=== PATIENT | male | born 1935 | race Caucasian/White ===

== ENCOUNTER → 2016-09-13 | Outpatient (CLI) | payer OTHER | LOC: CIMAGING 16:22 | PROVIDERS: ATTEND Internal Medicine | DX: S79.912A Unspecified injury of left hip, initial encounter (principal); S89.92XA Unspecified injury of left lower leg, initial encounter | CPT/HCPCS: 73502-PO; 73562-PO ==

== ENCOUNTER → 2016-12-06 | Outpatient (CLI) | payer OTHER | LOC: CIMAGING 14:50 | PROVIDERS: ATTEND Internal Medicine | DX: M50.30 Other cervical disc degeneration, unspecified cervical region (principal); M43.13 Spondylolisthesis, cervicothoracic region; Z98.1 Arthrodesis status | CPT/HCPCS: 72050-PO; G0463-PO ==

== ENCOUNTER → 2017-05-16 | Outpatient (CLI) | payer OTHER | LOC: CIMAGING 11:00 | PROVIDERS: ATTEND Internal Medicine | DX: Z12.11 Encounter for screening for malignant neoplasm of colon (principal); Z86.010 Personal history of colon polyps; Z98.1 Arthrodesis status; K40.90 Unilateral inguinal hernia, without obstruction or gangrene, not specified as recurrent | CPT/HCPCS: 74263-PO ==

== ENCOUNTER 2017-08-16 11:26 | Emergency (ER) | payer OTHER ==
--- NOTE | 2017-08-16 11:40 | EDPHY ---
H & P Time Seen by Provider: 08/16/17 11:34 HPI/ROS: CHIEF COMPLAINT: Skin tear, foot pain HISTORY OF PRESENT ILLNESS: The patient is an 82-year-old man who missed the bed when he tried to lay down last night to go to sleep. He suffered a skin tear to his left elbow and some bruising to the distal aspect of his left foot. He is able to ambulate. He did not hit his head. He denies head neck or back pain. The bleeding has now stopped. He denies other injuries or concerns. He denies syncope, chest pain or palpitations. He does not take blood thinners. REVIEW OF SYSTEMS: Constitutional: denies: chills, fever, recent illness, recent injury EENTM: denies: blurred vision, double vision, nose congestion Respiratory: denies: cough, shortness of breath Cardiac: denies: chest pain, irregular heart rate, lightheadedness, palpitations Gastrointestinal/Abdominal: denies: abdominal pain, diarrhea, nausea, vomiting, blood streaked stools Genitourinary: denies: dysuria, frequency, hematuria, pain Musculoskeletal: See HPI Skin: See HPI Neurological: denies: headache, numbness, paresthesia, tingling, dizziness, weakness Hematologic/Lymphatic: denies: blood clots, easy bleeding, easy bruising Immunologic/allergic: denies: HIV/AIDS, transplant EXAM: GENERAL: Well-appearing, well-nourished and in no acute distress. HEAD: Atraumatic, normocephalic. EYES: Pupils equal round and reactive to light, extraocular movements intact, sclera anicteric, conjunctiva are normal. ENT: TMs normal, nares patent, oropharynx clear without exudates. Moist mucous membranes. NECK: Normal range of motion, supple without lymphadenopathy or JVD. LUNGS: Breath sounds clear to auscultation bilaterally and equal. No wheezes rales or rhonchi. HEART: Regular rate and rhythm without murmurs, rubs or gallops. ABDOMEN: Soft, nontender, normoactive bowel sounds. No guarding, no rebound. No masses appreciated. BACK: No CVA tenderness, no spinal tenderness, step-offs or deformities EXTREMITIES: Bruising to the distal aspect dorsally of his left foot. Normal range of motion. No tenderness. No swelling. Able to ambulate. No ankle pain. No knee or hip pain. Skin tear to his left elbow. Normal range of motion. Normal pulses and sensation distally. NEUROLOGICAL: Cranial nerves II through XII grossly intact. Normal speech, normal gait. 5/5 strength, normal movement in all extremities, normal sensation PSYCH: Normal mood, normal affect. SKIN: 2 moderate-size skin tears to left elbow. Some surrounding bruising. Source: Patient, Family Exam Limitations: No limitations - Medical/Surgical History Hx Asthma: No Hx Chronic Respiratory Disease: No Hx Diabetes: No Hx Cardiac Disease: No Hx Renal Disease: No Hx Cirrhosis: No Hx Alcoholism: No Hx HIV/AIDS: No Hx Splenectomy or Spleen Trauma: No Other PMH: back surg/stroke - Family History Significant Family History: No pertinent family hx - Social History Smoking Status: Former smoker Alcohol Use: Sober Drug Use: None Constitutional: Initial Vital Signs Temperature (C) 36.8 C 08/16/17 11:35 Heart Rate 75 08/16/17 11:35 Respiratory Rate 18 08/16/17 11:35 Blood Pressure 125/75 H 08/16/17 11:35 O2 Sat (%) 94 08/16/17 11:35 O2 Delivery Mode Room Air Allergies/Adverse Reactions: simvastatin [From Zocor] Allergy (Verified 08/16/17 11:39) Home Medications: Medication Instructions Recorded Nexium 01/16/14 Norvasc 01/16/14 VIT A,C,& E/DIETARY SUPP NO.12 01/16/14 Zocor 10 mg (RX) 01/16/14 Aspirin 81mg (*) 08/16/17 Medical Decision Making - Diagnostics Imaging Results: Imaging Impressions Foot X-Ray 08/16/17 11:38 Impression: 1. No acute osseous abnormality seen left foot. 2. Vascular calcifications are noted. Consider underlying diabetes. ED Course/Re-evaluation: The patient declines imaging of his left elbow. His skin tear will be cleaned and dressed with antibiotic ointment sterile dressings. We will x-ray his foot. 12:20 p.m. the patient's skin tear was debrided. Dressed with antibiotic ointment and sterile dressings. We discussed the x-ray results which are reassuring. I recommended elevation but weight-bearing as tolerated. Differential Diagnosis: Partial list of the Differential diagnosis considered include but were not limited to; contusion, skin tear and although unlikely based on the history and physical exam, I also considered fracture, dislocation, head injury, neck injury, syncope. I discussed these differential diagnoses and the plan with the patient as well as the usual and expected course. The patient understands that the diagnosis is provisional and that in medicine we are not always correct and that further workup is often warranted. Usual and customary warnings were given. All of the patient's questions were answered. The patient was instructed to return to the emergency department should the symptoms at all worsen or return, otherwise to followup with the physician as we discussed. Departure - Departure Disposition: Home, Routine, Self-Care Clinical Impression: Contusion of left foot, initial encounter Skin tear of left elbow without complication Qualifiers: Encounter type: initial encounter Qualified Code(s): S51.012A - Laceration without foreign body of left elbow, initial encounter Condition: Fair Instructions: Foot Contusion (ED), Skin Tear (ED) Additional Instructions: LEAVE THE DRESSING IN PLACE FOR A MINIMUM OF 48 HOURS. DURING THIS TIME IT SHOULD BE KEPT CLEAN AND DRY. YOU MAY LEAVE THIS DRESSING IN PLACE FOR UP TO 4- 5 DAYS. ONCE IT HAS BEEN REMOVED, BEGIN TO CLEAN THE WOUND DAILY WITH MILD SOAP AND WARM WATER. KEEP THE WOUND COVERED IF IT MAY BE EXPOSED TO DIRT OR COULD BECOME SOILED. WATCH FOR ANY SIGNS OF INFECTION, INCLUDING BUT NOT LIMITED TO FEVER, INCREASING REDNESS OR SWELLING, PUS COMING FROM THE WOUND OR RED STREAKS GOING UP YOUR ARM. FOLLOW UP WITH YOUR PRIMARY CARE PHYSICIAN IF NOT IMPROVING. RETURN TO THE EMERGENCY DEPARTMENT FOR ANY SIGNIFICANT WORSENING. Referrals: Juanito Pedersen MD [Primary Care Provider] - 2-3 days, if not improved
[2017-08-16 11:48] VITALS: PULSE 75; RESP 18; TEMP 98.2; O2SAT 94
[2017-08-16 12:51] VITALS: BP 120/72
== END 2017-08-16 12:45 | disposition home or self-care (01) ==
LOC: CED 11:26
DX: S51.012A Laceration without foreign body of left elbow, initial encounter (principal); S90.32XA Contusion of left foot, initial encounter; Z79.82 Long term (current) use of aspirin; Z87.891 Personal history of nicotine dependence; W06.XXXA Fall from bed, initial encounter
CPT/HCPCS: 73630-PO

== ENCOUNTER → 2017-10-12 | Outpatient (CLI) | payer OTHER | LOC: BHFA 14:00 | PROVIDERS: ATTEND Internal Medicine Cardiovascular Disease | DX: Z01.810 Encounter for preprocedural cardiovascular examination (principal); R06.9 Unspecified abnormalities of breathing; Z86.73 Personal history of transient ischemic attack (TIA), and cerebral infarction without residual deficits; M48.00 Spinal stenosis, site unspecified | CPT/HCPCS: 78452; 93017; A9500; J2785 ==

== ENCOUNTER → 2017-10-17 | Outpatient (CLI) | payer OTHER | LOC: BHFA 16:15 | PROVIDERS: ATTEND Internal Medicine | DX: Z01.810 Encounter for preprocedural cardiovascular examination (principal); R94.30 Abnormal result of cardiovascular function study, unspecified; I10 Essential (primary) hypertension ==

== ENCOUNTER 2017-11-22 07:30 | Inpatient (IN) | payer OTHER ==
--- NOTE | 2017-11-22 06:52 | PDHPUP ---
History & Physical Update H&P update statement: This history and physical update is based on an assessment of the patient which was completed after admission or registration (within 24 hours), but prior to the surgery/procedure. H&P update: H&P reviewed & patient examined, no change in patient's condition since H&P completed
[2017-11-22] MEDS ORDERED: GABAPENTIN 300 MG CAP PO ONE (08:41)
[2017-11-22] MEDS ORDERED: ceFAZolin 2 GM/SWFI 2 GM/20 ML SYR IVP ONE (08:41)
[2017-11-22] MEDS ORDERED: ACETAMINOPHEN 500 MG TAB PO ONE (08:41)
[2017-11-22] MEDS ORDERED: LR 1,000 ML IV ONE (08:42)
[2017-11-22] MEDS ORDERED: LIDOCAINE 1% 2 ML INJ ID PRN (08:42)
[2017-11-22] MEDS ORDERED: CHLORHEXIDINE GLUC HIBICLENS 118 ML BTL TP ONE (09:40)
[2017-11-22] MEDS ORDERED: BUPIVACAINE 0.25% 30 ML SDV ONE (09:41)
[2017-11-22] MEDS ORDERED: BACITRACIN 50,000 UNITS/10 ML SYR IRR ONE ×2 (09:41→13:15)
[2017-11-22] MEDS ORDERED: EPINEPHrine 1 MG/ML INJ ONE (09:41)
[2017-11-22] MEDS ORDERED: THROMBIN (BOVINE) 5,000 UNIT VIAL TP ONE (09:41)
[2017-11-22] MEDS ORDERED: ONDANSETRON DISINTEGRATING 4 MG TAB PO PRN (09:59)
[2017-11-22] MEDS ORDERED: morphINE PCA 30 MG/30 ML PCA IV PRN (09:59)
[2017-11-22] MEDS ORDERED: NALOXONE HCL 0.4 MG/ML INJ IVP PRN ×2 (09:59→14:55)
[2017-11-22] MEDS ORDERED: diphenhydrAMINE 25 MG CAP PO PRN (09:59)
[2017-11-22] MEDS ORDERED: MAGNESIUM HYDROXIDE 30 ML UDCUP PO PRN (09:59)
[2017-11-22] MEDS ORDERED: LACTULOSE 20 GM/30 ML UDCUP PO PRN (09:59)
[2017-11-22] MEDS ORDERED: BISACODYL 10 MG SUPP PR PRN (09:59)
[2017-11-22] MEDS ORDERED: NS 500 ML IV PRN (09:59)
[2017-11-22] MEDS ORDERED: ONDANSETRON 4 MG/2 ML VIAL IVP PRN ×2 (09:59→14:55)
[2017-11-22] MEDS ORDERED: NS W/ 20 KCl/L 1,000 ML IV SCH (10:00)
[2017-11-22] MEDS ORDERED: DEXMEDETOMIDINE HCL 400 MCG in NS 100 ML IV SCH (10:00)
--- NOTE | 2017-11-22 10:04 | PDANEPAE ---
ANE History of Present Illness Back pain ANE Past Medical History - Cardiovascular History Hx Hypertension: Yes Hx Arrhythmias: No Hx Chest Pain: No Hx Coronary Artery / Peripheral Vascular Disease: No Hx CHF / Valvular Disease: No Hx Palpitations: No Cardiovascular History Comment: on Chol Rx - Pulmonary History Hx COPD: No Hx Asthma/Reactive Airway Disease: No Hx Recent Upper Respiratory Infection: No Hx Oxygen in Use at Home: No Hx Sleep Apnea: No Sleep Apnea Screening Result - Last Documented: Negative - Neurologic History Hx Cerebrovascular Accident: Yes Hx Seizures: No Hx Dementia: No Neurologic History Comment: 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 Short term memory loss. - Endocrine History Hx Diabetes: No - Renal History Hx Renal Disorders: No - Liver History Hx Hepatic Disorders: No - Neurological & Psychiatric Hx Hx Neurological and Psychiatric Disorders: Yes Neurological / Psychiatric History Comment: low back pain radiating down L butt/ hip. on Sertraline-depression. - Cancer History Hx Cancer: No - Congenital Disorder History Hx Congenital Disorders: No - GI History Hx Gastrointestinal Disorders: Yes Gastrointestinal History Comment: acid reflux,heartburn - Other Health History Other Health History: OA L knee pain. bruises easily - Chronic Pain History Chronic Pain: Yes (low back,L knee) - Surgical History Prior Surgeries: cervical fusion 2007. lumbar fusion. elbow sx. knee sx ANE Review of Systems Review of Systems: - Exercise capacity METS (RN): 2 METS ANE Patient History - Allergies Allergies/Adverse Reactions: No Known Allergies Allergy (Verified 10/16/17 15:18) - Home Medications Home Medications: Aspirin [Aspirin 81mg (*)] 81 mg PO DAILY 10/11/17 [Last Taken 11/14/17] Cyanocobalamin [Vitamin B12 (*)] 1,000 mcg PO DAILY 10/11/17 [Last Taken ] Docusate Sodium [Colace 100 MG (*)] 100 mg PO DAILY PRN 10/11/17 [Last Taken Unknown] Meloxicam 15 mg PO DAILY 10/11/17 [Last Taken 11/21/17 08:00] Multivitamins [Multivitamin (*)] 1 each PO DAILY 10/11/17 [Last Taken 11/14/17] Omeprazole 40 mg PO DAILY 10/11/17 [Last Taken 11/22/17 07:30] Polyethylene Glycol 3350 [Miralax 17 gm (*)] 17 gm PO HS 10/11/17 [Last Taken ] Sertraline HCl [Zoloft 50mg (*)] 50 mg PO DAILY 10/11/17 [Last Taken 11/22/17 07 :30] Simvastatin [Zocor] 20 mg PO HS 10/11/17 [Last Taken 11/21/17 20:00] Thiamine HCl [Vitamin B-1] 100 mg PO DAILY 10/11/17 [Last Taken 11/14/17] traMADol [Ultram 50 mg (*)] 50 mg PO BID 10/11/17 [Last Taken 11/22/17 07:30] traZODone [traZODONE 50MG (*)] 25 mg PO HS 10/11/17 [Last Taken 11/21/17 20:00] Metoprolol Succinate Xr [Toprol Xl 25 mg (*)] 25 mg PO DAILY 11/13/17 [Last Taken 11/22/17 07:30] - NPO status NPO Since - Liquids (Date): 11/22/17 NPO Since - Liquids (Time): 04:30 NPO Since - Solids (Date): 11/21/17 NPO Since - Solids (Time): 20:00 - Anes Hx Anes Hx: no prior problems - Smoking Hx Smoking Status: Former smoker ANE Labs/Vital Signs - Vital Signs Blood Pressure: 122/63 Heart Rate: 53 Respiratory Rate: 16 O2 Sat (%): 94 Height: 172.72 cm Weight: 54.431 kg ANE Physical Exam - Airway Neck exam: FROM Mallampati Score: Class 1 Mouth exam: normal dental/mouth exam - Pulmonary Pulmonary: no respiratory distress - Cardiovascular Cardiovascular: regular rate and rhythym - ASA Status ASA Status: IV ANE Anesthesia Plan Anesthesia Plan: general endotracheal anesthesia
[2017-11-22] MEDS ORDERED: PROPOFOL 200 MG/20 ML VIAL ONE ×2 (10:08→13:47)
[2017-11-22] MEDS ORDERED: PROPOFOL/EMULSION 500 MG/50 ML BOTTLE IV ONE (10:08)
[2017-11-22] MEDS ORDERED: fentaNYL 100 MCG/2 ML INJ ONE ×4 (10:08→15:12)
[2017-11-22] MEDS ORDERED: LIDOCAINE 2% 5 ML SDV ONE (10:52)
[2017-11-22] MEDS ORDERED: GLYCOPYRROLATE 0.2 MG/1 ML VIAL ONE ×2 (10:52→10:55)
[2017-11-22] MEDS ORDERED: THROMBIN (BOVINE) 20,000 UNIT VIAL TP ONE (10:52)
[2017-11-22] MEDS ORDERED: ROCURONIUM 50 MG/5 ML VIAL ONE (10:52)
--- NOTE | 2017-11-22 14:53 | SOAPPROG ---
SOAP Progress Note Assessment/Plan: Post Op Visit: S: Awake and alert. NAD. O: AFVSS/PERRLA/EOMI no droop CN 2-12 grossly intact +lt touch 5/5 BUE/BLE = CDI A/P: 82 yo male that is s/p L3/4 TLIF with L2/3 PSF and tie in to prior lumbar fusion -orders in place -call with any questions or concerns -take medications as directed -pt understands and agrees -pt seen by Dr Almazan as well 11/22/17 14:50 Objective: Vital Signs Temp Pulse Resp BP Pulse Ox 36.7 C 53 L 16 122/63 H 94 11/22/17 09:27 11/22/17 11:22 11/22/17 11:22 11/22/17 11:22 11/22/17 11:22 ICD10 Worksheet Patient Problems: Problems Problem Status Onset Lumbar radicular pain Acute Lumbar stenosis Acute - ICD10 Problem Qualifiers (1) Lumbar stenosis (2) Lumbar radicular pain
[2017-11-22] MEDS ORDERED: HYDROmorphONE/DILAUDID 2 MG/ML INJ IVP PRN (14:55)
--- NOTE | 2017-11-22 14:56 | POSTANESTH ---
Post Anesthetic Evaluation Cardiovascular Status: Similar to Pre-Op Cond Respiratory Status: Similar to Pre-op Cond. Level of Consciousness/Mental Status: Alert and Oriented, Mildly Sleepy, Arousable Pain Control: Adequate, Prn Tx Ordered Nausea/Vomiting Control: Adequate, Prn Tx Ordered Complications Possibly Related to Anesthesia: None Noted
[2017-11-22] MEDS: fentaNYL 100 MCG/2 ML INJ IVP PRN ×2 (15:14→15:44)
[2017-11-22] MEDS: ACETAMINOPHEN 500 MG TAB PO SCH ×2 (16:49→21:42)
[2017-11-22] MEDS: GABAPENTIN 300 MG CAP PO SCH ×2 (16:49→21:17)
--- NOTE | 2017-11-22 17:08 | PDMN ---
Medical Necessity Medical necessity: IP surgery per [facility] cpt 88987, TLIF
--- NOTE | 2017-11-22 17:34 | GOP ---
[f rep st] OPERATIVE REPORT DATE OF OPERATION: 11/22/2017 SURGEON: Erika Almazan MD NEUROSURGEON: Erika Almazan MD. SMALL ORDER CUTTER: Ej Vasquez PA-C. PREOPERATIVE DIAGNOSIS: Adjacent segment disease, severe; spinal stenosis, L3-4; prior lumbar fusion L4-5, L5-S1; thoracolumbar kyphosis; lumbar spondylosis; lumbar degenerative disk disease, axial low back pain. POSTOPERATIVE DIAGNOSIS: Adjacent segment disease, severe; spinal stenosis, L3-4; prior lumbar fusio n L4-5, L5-S1; thoracolumbar kyphosis; lumbar spondylosis; lumbar degenerative disk disease, axial lo w back pain. PROCEDURE PERFORMED: Removal of posterior segmental instrumentation at L4 in between L4 and L5; post erior lateral arthrodesis only L2-3; posterolateral and intervertebral arthrodesis L3-4, 07627, 50015 ; placement of biomechanical intervertebral device L3-4 same incision bone graft harvest; posterior n ew segmental instrumentation L2-L3 connectors rostral to L5 (99930); spinal stereotaxis same incision bone graft harvest. FINDINGS: ESTIMATED BLOOD LOSS: 250 cc. INDICATIONS: The patient is a very elderly frail gentleman who years ago underwent an L4-5, L5-S1 fu luli with great clinical result, who developed incapacitating axial low back pain and at times radiat ing leg pain that made him relent of life. He said he could no longer go on this way. An MRI was do ne and demonstrated severe spinal stenosis at L3-4 with obliteration both of the neural foramen on ea ch side, but also very severe stenosis due to adjacent segment disease, but there was also some mild stenosis at L2-3. There is a thoracolumbar kyphosis more rostral, but no significant compressive les ion. While biomechanical, I felt this was important. I did not think he would tolerate extending th e fusion up into the thoracic spine. He is quite frail and I explained to him there is actually a ri sk of with this procedure and that it may fail given his advanced age. He did do better than e xpected, even with the last surgery and we thought it was reasonable to give him a chance. He said h michael was accepting of the risks, including the risks of if that were to occur and said that life r ight now is not worth living and he did want us to proceed. He knew there was risk of nerve injury, adjacent segment disease, further kyphosis above. He knew there was a chance that it would fail to a lleviate his pain. He knew there was risk of screw and hardware malposition, malfunction. He knew t here was risk that it would fail to heal and that revision surgery might become necessary. He wanted to proceed despite these risks. DESCRIPTION OF PROCEDURE: Patient was taken to the operating room, placed in supine position. Gener al anesthesia was begun. An arterial line was placed. He was flipped prone on the Hubert table. C are was taken to pad all points of contact. His back was sterilely prepped and draped in usual fashi on. A localizing x-ray was taken. We made a midline incision opening the prior incision, but extend ed it rostrally for about 6 cm. The subcutaneous tissue was dissected using the plasma blade down th rough the fascia and a subperiosteal dissection was made down through the lamina. We exposed the castellanos yuliya of L3, L2 and the inferior lamina of L1, the spinous process of L1, in particular the spinous pro cess of T12 which by way was not exposed in our incision. It was quite prominent above the incision. The spinous process of L1 however was exposed in the incision, we dissected out laterally, exposed the hardware at L4 and the hardware at L5. We removed the cap screws at L4 and then took a high-spee d carbide bit and cut the rods between L4 and L5 and removed the screws from his segmental instrument ation at L4, L5, S1. We removed the screws at L4. We then placed a connector down over the rostral extension of the rods at L5 to ensure the connector fit. We then attached the Stealth reference fram e and using frame of Stealth stereotaxy, placed pedicle screws bilaterally at L3 and L2. There were 4 screws placed, we then took a 70 mm karis, bent the inferior-most portion of the karis that allowed it to fit into the connectors attached to the karis extending from L5. On the left-hand side, we used an in-line connector and then on the right-hand side, a [id number] connector worked better. We then d istracted between L3 and L4 and got significant distraction of the very degenerative disk and this op ened up the interspinous process space, the intralaminar space and the neural foramen indirectly. We also distracted L2-3 and got nice opening there as well. We removed all soft tissue of the bone at L2-3, L3-4. We decorticated all the posterior lateral bony elements to create arthrodesis and then w e removed the L3 lamina in its entirety. We removed the rostral of the L4 lamina. We harvested this for autologous grafting purposes. We opened up the spinal canal and under the operating microscope decompressed bilaterally the traversing L4 nerve roots and perform foraminotomies of the exiting L3 n erve roots on the left-hand side. We performed a complete left facetectomy at L3-4. We then entered the L3-4 disk. We decompressed the exiting L3 nerve root widely. There was a large synovial cyst o n top of the root and this was all totally removed. It was out in the neural foramen itself contribu ting to foraminal stenosis. We then incised the C3-4 disk, removed the disk completely. We roughene d the subchondral bone to create arthrodesis there. We packed the bone disk space with bone autograf t. We sized and chose an expandable 9 mm x 28 mm cage, put in at L3-4 and expanded it under fluorosc opic guidance. It was perfectly in the midline and in the ventral disk space. We had used BMP in th e disk space. We used a grand total of 3.5 mg of BMP on this case. We placed 2 mg of it in the disk space and 0.75 mg posterolaterally bilaterally. We then took the bone autograft and placed it down posterolaterally bilaterally. All the cap screws and connectors had been tightened according to comp any specification, placed a subfascial drain, and then closed the incision in multiple layers using V icryl sutures. The patient was reversed from anesthesia, extubated, and transferred to recovery room in stable condition. There were no complications. COMPLICATIONS: None. /[id number]/MODL
[2017-11-22] MEDS: ceFAZolin 2 GM/SWFI 2 GM/20 ML SYR IVP SCH (18:26)
[2017-11-22] MEDS ORDERED: ceFAZolin 2 GM/DEXTROSE 100 ML IV SCH (19:00)
[2017-11-22] MEDS: HYDROCODONE/APAP 5/325 TAB PO PRN (20:15)
[2017-11-22] MEDS ORDERED: FAMOTIDINE 20 MG TAB PO SCH (21:00)
[2017-11-22] MEDS: ATORVASTATIN CALCIUM 10 MG TAB PO SCH (21:16)
[2017-11-22] MEDS: traZODone 50 MG TAB PO SCH (21:17)
[2017-11-22] MEDS: traMADol 50 MG TAB PO SCH (21:17)
[2017-11-22] MEDS: oxyCODONE IR 5 MG TAB PO PRN (21:18)
[2017-11-22] MEDS: POLYETHYLENE GLYCOL 3350 17 GM PKT PO SCH (21:19)
[2017-11-22] MEDS: METHOCARBAMOL 750 MG TAB PO PRN (21:19)
[2017-11-23] MEDS ORDERED: NS 500 ML IV ONE (02:00)
[2017-11-23] MEDS: ceFAZolin 2 GM/SWFI 2 GM/20 ML SYR IVP SCH (02:09)
[2017-11-23] MEDS: GABAPENTIN 300 MG CAP PO SCH ×2 (05:21→14:53)
[2017-11-23] MEDS: ACETAMINOPHEN 500 MG TAB PO SCH ×2 (05:30→14:53)
[2017-11-23 05:50] LABS: PLATELET COUNT 174 10^3/uL (150-400)
[2017-11-23] MEDS: DOCUSATE SODIUM 100 MG CAP PO PRN (06:48)
--- NOTE | 2017-11-23 08:13 | SOAPPROG ---
SOAP Progress Note Assessment/Plan: Assessment: 82 yo M sp L2-4 fusion with L3/4 TLIF Plan: stable PT/OT scd/jack/lovenox for dvt prophylaxis x-rays today ok to transfer to floor please call with neuro changes 11/23/17 08:11 Subjective: + back pain, no leg pain Objective: Vital Signs Temp Pulse Resp BP Pulse Ox 36.4 C 53 L 13 111/51 L 96 11/23/17 07:38 11/23/17 07:38 11/23/17 07:38 11/23/17 07:38 11/23/17 07:38 Laboratory Results 11/23/17 05:40 11/23/17 05:40 11/22/17 11/23/17 11/24/17 05:59 05:59 05:59 Intake Total 3441 834 Output Total 2200 Balance 1241 834 AAOX4, +FC PERRL, EOMI, no facial droop 5/5 + light touch C/D/I ICD10 Worksheet Patient Problems: Problems Problem Status Onset Lumbar radicular pain Acute Lumbar stenosis Acute
[2017-11-23] MEDS: SERTRALINE HCL 50 MG TAB PO SCH (08:55)
[2017-11-23] MEDS: traMADol 50 MG TAB PO SCH (08:55)
[2017-11-23] MEDS: PANTOPRAZOLE SODIUM 40 MG TAB PO SCH (08:56)
[2017-11-23] MEDS: THIAMINE HCL 100 MG TAB PO SCH (08:56)
[2017-11-23] MEDS: METOPROLOL SUCCINATE XR 25 MG TAB PO SCH (08:56)
[2017-11-23] MEDS: METHOCARBAMOL 750 MG TAB PO PRN ×2 (08:59→14:54)
[2017-11-23] MEDS: oxyCODONE IR 5 MG TAB PO PRN ×2 (08:59→14:54)
[2017-11-23] MEDS: CYANO/VITAMIN B12 1000 MCG TAB PO SCH (09:04)
--- NOTE | 2017-11-23 12:47 | ASMTCASEMG ---
Living Arrangements What is your living Answers: Alone arrangement? Who do you live with? Type Of Residence What kind of residence do Answers: House you live in? Discharge Plan Comments Coordination Status Comments Notes: Patient is an 82yo male who was admitted for a spL2-4 fusion with L3/4 TLIF. Patient has 2 sons, Bradley and Espinoza. Patient lives in [place], [place]. OT/PT evals have been ordered. D/C plan TBD. CM will follow Date Signed: 11/23/2017 12:47 PM Electronically Signed By:Alivia Hopkins LCSW
[2017-11-23] MEDS ORDERED: LORazepam 2 MG/ML INJ IV PRN (16:41)
[2017-11-23] MEDS: HYDROmorphone HCL/NS 0.5 MG/ML SYR IVP PRN (19:46)
[2017-11-24] MEDS: oxyCODONE IR 5 MG TAB PO PRN ×2 (00:27→15:45)
[2017-11-24] MEDS: ACETAMINOPHEN 500 MG TAB PO SCH ×4 (00:28→23:12)
[2017-11-24] MEDS: GABAPENTIN 300 MG CAP PO SCH ×4 (00:28→20:13)
[2017-11-24] MEDS: traMADol 50 MG TAB PO SCH ×3 (00:28→20:11)
[2017-11-24] MEDS: POLYETHYLENE GLYCOL 3350 17 GM PKT PO SCH ×2 (00:29→20:12)
[2017-11-24] MEDS: ATORVASTATIN CALCIUM 10 MG TAB PO SCH ×2 (00:29→20:11)
[2017-11-24] MEDS: traZODone 50 MG TAB PO SCH ×2 (00:31→20:11)
[2017-11-24] MEDS: HYDROmorphone HCL/NS 0.5 MG/ML SYR IVP PRN (02:01)
[2017-11-24] MEDS: CYANO/VITAMIN B12 1000 MCG TAB PO SCH (08:11)
[2017-11-24] MEDS: PANTOPRAZOLE SODIUM 40 MG TAB PO SCH (08:11)
[2017-11-24] MEDS: SERTRALINE HCL 50 MG TAB PO SCH (08:11)
[2017-11-24] MEDS: THIAMINE HCL 100 MG TAB PO SCH (08:13)
--- NOTE | 2017-11-24 09:16 | NEUSURGPN ---
Date of Surgery: 11/22/17 Post Op Day: 2 Assessment/Plan: Assessment: 82 yo M sp L2-4 fusion with L3/4 TLIF Plan: - neuro stable - continue current pain regimen - remove THA drain today - postop x-rays completed, hardware in good placement - PT/OT - wear brace as needed for comfort - SCDs/TEDs, Lovenox - dispo: will need SNF, likely tomorrow Subjective: Sitting in bedside chair. Having localized back pain. No LE pain. Objective: Awake. Alert. PERRL. EOMI Facial expression symmetrical Muscle strength full at 5/5 Sensation intact Catheter Insertion Date: 11/22/17 - Physician Discussed Patient with Dr.: Tha Neurosurgery Physical Exam - Vitals, I&O, Labs I and O 11/23/17 11/24/17 11/25/17 05:59 05:59 05:59 Intake Total 3441 1584 Output Total 2200 2280 Balance 1241 -696 Weight 54.431 kg Intake: Oral (ml) 1160 750 IV Intake (ml) 1700 IV Infused (ml) 581 834 NS W/ 20 KCl/L 1,000 ml @ 81 834 75 mls/hr IV CONT ION Rx #:[id number] Ns 500 ml @ As Directed 500 IV ONCE ONE Rx#: [id number] Output: Urine (ml) 1475 2190 Catheter 1475 1640 Toilet 550 Estimated Blood Loss (ml) 150 THA Drain Output (ml) 575 90 Back Hubert [place] 575 90 Other: Intake Quantity Yes Sufficient Output Comment Catheter staright cath with bladder scan value per order Number of Stools Toilet 0 Vital Signs Temp Pulse Resp BP Pulse Ox 36.6 C 61 18 97/44 L 93 11/24/17 07:36 11/24/17 07:36 11/24/17 00:00 11/24/17 07:36 11/24/17 07:36 Laboratory Results 11/23/17 05:40 11/23/17 05:40 ICD10 Worksheet Patient Problems: Problems Problem Status Onset Lumbar radicular pain Acute Lumbar stenosis Acute
[2017-11-24] MEDS: METOPROLOL SUCCINATE XR 25 MG TAB PO SCH (10:06)
--- NOTE | 2017-11-24 11:41 | ASMTCMCOM ---
CM Note CM Note Notes: Patient accepted to the Center at [facility]. I spoke with his son Espinoza, and the family still agrees to this plan. Case Management will faciliate transfer when appropriate. Date Signed: 11/24/2017 11:41 AM Electronically Signed By:Donita Matta RN
[2017-11-24] MEDS: METHOCARBAMOL 750 MG TAB PO PRN (17:36)
[2017-11-25] MEDS: HYDROCODONE/APAP 5/325 TAB PO PRN (02:53)
[2017-11-25] MEDS: METHOCARBAMOL 750 MG TAB PO PRN ×3 (02:53→17:52)
[2017-11-25] MEDS: oxyCODONE IR 5 MG TAB PO PRN ×2 (04:20→09:10)
[2017-11-25] MEDS: GABAPENTIN 300 MG CAP PO SCH ×3 (06:22→22:43)
[2017-11-25] MEDS: ACETAMINOPHEN 500 MG TAB PO SCH ×3 (06:23→22:40)
[2017-11-25] MEDS: traMADol 50 MG TAB PO SCH ×2 (07:40→22:42)
--- NOTE | 2017-11-25 08:50 | NEUSURGPN ---
Assessment/Plan: Assessment: 82 yo M sp L2-4 fusion with L3/4 TLIF Plan: - neuro stable - continue current pain regimen - postop x-rays completed, hardware in good placement - PT/OT - wear brace as needed for comfort - SCDs/TEDs, Lovenox - dispo: will need SNF, likely monday Subjective: Pt resting in bed, c/o pain with movement. Ready for more pain meds now. Doesn' t want to DC today Objective: AAOx3 NAD VSS MAEx4 Motor BLE +LT Urinary Catheter in Place: No Catheter Insertion Date: 11/22/17 Neurosurgery Physical Exam - Vitals, I&O, Labs I and O 11/24/17 11/25/17 11/26/17 05:59 05:59 05:59 Intake Total 1584 250 Output Total 2280 150 Balance -696 100 Intake: Oral (ml) 750 250 IV Infused (ml) 834 NS W/ 20 KCl/L 1,000 ml @ 834 75 mls/hr IV CONT ION Rx #:[id number] Output: Urine (ml) 2190 100 Catheter 1640 Toilet 550 Urinal 100 THA Drain Output (ml) 90 50 Back Hubert [place] 90 50 Other: Output Comment Catheter staright cath with bladder scan value per order Number of Voids Toilet 4 Number of Stools Toilet 0 Vital Signs Temp Pulse Resp BP Pulse Ox 36.6 C 67 16 105/56 L 97 11/25/17 07:35 11/25/17 07:35 11/25/17 07:35 11/25/17 07:35 11/25/17 07:35 Laboratory Results 11/23/17 05:40 11/23/17 05:40 ICD10 Worksheet Patient Problems: Problems Problem Status Onset Lumbar radicular pain Acute Lumbar stenosis Acute
[2017-11-25] MEDS: THIAMINE HCL 100 MG TAB PO SCH (09:00)
[2017-11-25] MEDS: METOPROLOL SUCCINATE XR 25 MG TAB PO SCH (09:02)
[2017-11-25] MEDS: CYANO/VITAMIN B12 1000 MCG TAB PO SCH (09:02)
[2017-11-25] MEDS: ENOXAPARIN 40 MG/0.4 ML SYR SC SCH (09:02)
[2017-11-25] MEDS: SERTRALINE HCL 50 MG TAB PO SCH (09:02)
[2017-11-25] MEDS: PANTOPRAZOLE SODIUM 40 MG TAB PO SCH (09:02)
[2017-11-25] MEDS: DOCUSATE SODIUM 100 MG CAP PO PRN (09:23)
[2017-11-25 13:58] LABS: CREATINE KINASE 170 IU/L (0-224)
--- NOTE | 2017-11-25 16:26 | ASMTCMCOM ---
CM Note CM Note Notes: Pt will likely DC to Center at [place] tomorrow. Updated wkend person Deysi at [phone]. Date Signed: 11/25/2017 03:31 PM Electronically Signed By:Sherly Gillette LCSW
[2017-11-25] MEDS: ATORVASTATIN CALCIUM 10 MG TAB PO SCH (22:41)
[2017-11-25] MEDS: POLYETHYLENE GLYCOL 3350 17 GM PKT PO SCH (22:42)
[2017-11-25] MEDS: traZODone 50 MG TAB PO SCH (22:43)
[2017-11-26] MEDS: GABAPENTIN 300 MG CAP PO SCH (06:13)
[2017-11-26] MEDS: ACETAMINOPHEN 500 MG TAB PO SCH (06:28)
[2017-11-26] MEDS: METHOCARBAMOL 750 MG TAB PO PRN (06:32)
[2017-11-26 07:41] VITALS: BP 108/63
--- NOTE | 2017-11-26 09:45 | NEUSURGPN ---
Assessment/Plan: Assessment: 82 yo M sp L2-4 fusion with L3/4 TLIF Plan: - neuro stable - continue current pain regimen - postop x-rays completed, hardware in good placement - PT/OT - wear brace as needed for comfort - SCDs/TEDs, Lovenox - dispo: dc to SNF Subjective: Pt resting in bed, states he is ready to go to rehab today Objective: AAOx3 NAD VSS MAEx4 Motor 5/5 BLE Incision dressed cdi +LT Urinary Catheter in Place: No Catheter Insertion Date: 11/22/17 Neurosurgery Physical Exam - Vitals, I&O, Labs I and O 11/25/17 11/26/17 11/27/17 05:59 05:59 05:59 Intake Total 250 240 Output Total 150 Balance 100 240 Intake: Oral (ml) 250 240 Output: Urine (ml) 100 Urinal 100 THA Drain Output (ml) 50 Back Hubert [place] 50 Other: Intake Quantity Yes Sufficient Number of Voids Toilet 4 1 1 Vital Signs Temp Pulse Resp BP Pulse Ox 36.6 C 65 15 108/63 95 11/26/17 07:40 11/26/17 07:40 11/26/17 07:40 11/26/17 07:40 11/26/17 07:40 Laboratory Results 11/23/17 05:40 11/23/17 05:40 ICD10 Worksheet Patient Problems: Problems Problem Status Onset Lumbar radicular pain Acute Lumbar stenosis Acute
[2017-11-26] MEDS: CYANO/VITAMIN B12 1000 MCG TAB PO SCH (09:46)
[2017-11-26] MEDS: SERTRALINE HCL 50 MG TAB PO SCH (09:47)
[2017-11-26] MEDS: METOPROLOL SUCCINATE XR 25 MG TAB PO SCH (09:47)
[2017-11-26] MEDS: THIAMINE HCL 100 MG TAB PO SCH (09:47)
[2017-11-26] MEDS: traMADol 50 MG TAB PO SCH (09:47)
[2017-11-26] MEDS: PANTOPRAZOLE SODIUM 40 MG TAB PO SCH (09:47)
--- NOTE | 2017-11-26 09:50 | PDIAF ---
- Diagnosis Code Status: Full Code - Medication Management Discharge Medications: Medications to Continue on Transfer Cyanocobalamin [Vitamin B12 (*)] 1,000 mcg PO DAILY 10/11/17 [Last Taken ] Docusate Sodium [Colace 100 MG (*)] 100 mg PO DAILY PRN 10/11/17 [Last Taken Unknown] Multivitamins [Multivitamin (*)] 1 each PO DAILY 10/11/17 [Last Taken 11/14/17] Omeprazole 40 mg PO DAILY 10/11/17 [Last Taken 11/22/17 07:30] Polyethylene Glycol 3350 [Miralax 17 gm (*)] 17 gm PO HS 10/11/17 [Last Taken ] Sertraline HCl [Zoloft 50mg (*)] 50 mg PO DAILY 10/11/17 [Last Taken 11/22/17 07 :30] Simvastatin [Zocor] 20 mg PO HS 10/11/17 [Last Taken 11/21/17 20:00] Thiamine HCl [Vitamin B-1] 100 mg PO DAILY 10/11/17 [Last Taken 11/14/17] traMADol [Ultram 50 mg (*)] 50 mg PO BID 10/11/17 [Last Taken 11/22/17 07:30] traZODone [traZODONE 50MG (*)] 25 mg PO HS 10/11/17 [Last Taken 11/21/17 20:00] Metoprolol Succinate Xr [Toprol Xl 25 mg (*)] 25 mg PO DAILY 11/13/17 [Last Taken 11/22/17 07:30] Enoxaparin [Lovenox 40 MG (*)] 40 mg SC DAILY syr 11/26/17 [Last Taken Unknown] Gabapentin [Neurontin 300 MG (*)] 300 mg PO Q8HRS cap 11/26/17 [Last Taken Unknown] Hydrocodone/APAP 5/325 [[place] 5/325 (*)] 1 - 2 tab PO Q4HRS PRN tab 11/26/17 [ Last Taken Unknown] Methocarbamol [Robaxin 750 mg (*)] 750 mg PO QID PRN tab 11/26/17 [Last Taken Unknown] oxyCODONE IR [Oxycodone Ir (*)] 5 - 10 mg PO Q4HRS PRN tab 11/26/17 [Last Taken Unknown] Discharge Medications: Refer to the Discharge Home Medication list for PRN reason. - Orders Services needed: Registered Nurse, Physical Therapy, Occupational Therapy Diet Recommendation: no restrictions on diet Diet Texture: Regular Texture Diet Sutures/[place] Site: Keep incision clean, dry, and intact. daily dressing changes Additional Instructions: No bending/lifting/twisting brace is optional Do not soak incision - daily dressing changes 5-10lb weight limit Follow up with Dr Almazan in 2-3 weeks for post op visit Call office with any issues @ [phone] - Follow Up Care Current Providers and Referrals: Juanito Pedersen MD [Primary Care Provider] - Van Almazan MD [Medical Doctor] -
[2017-11-26] MEDS: ENOXAPARIN 40 MG/0.4 ML SYR SC SCH (09:56)
--- NOTE | 2017-11-26 11:19 | ASMTLACE ---
LACE Length of stay for Answers: 4-6 days current admission Acuity / Level of Answers: Yes Care: Did the patient have an inpatient admission? 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
== END 2017-11-26 13:22 | DRG 455 ==
LOC: F3N 08:32 → F2N 15:54 → F3N 11-24 16:28
PROVIDERS: ADMIT Neurological Surgery; ATTEND Neurological Surgery
PROC: 01NB0ZZ Release Lumbar Nerve, Open Approach (ICD-10-PCS; principal; 2017-11-22 10:30)
PROC: 0SG00AJ Fusion of Lumbar Vertebral Joint with Interbody Fusion Device, Posterior Approach, Anterior Column, Open Approach (ICD-10-PCS; principal; 2017-11-22 10:30)
PROC: 0ST20ZZ Resection of Lumbar Vertebral Disc, Open Approach (ICD-10-PCS; principal; 2017-11-22 10:30)
PROC: 0SG0071 Fusion of Lumbar Vertebral Joint with Autologous Tissue Substitute, Posterior Approach, Posterior Column, Open Approach (ICD-10-PCS; principal; 2017-11-22 10:30)
PROC: 0SP00AZ Removal of Interbody Fusion Device from Lumbar Vertebral Joint, Open Approach (ICD-10-PCS; principal; 2017-11-22 10:30)
DX: M48.061 Spinal stenosis, lumbar region without neurogenic claudication (principal); M40.205 Unspecified kyphosis, thoracolumbar region; M47.816 Spondylosis without myelopathy or radiculopathy, lumbar region; M51.36 Other intervertebral disc degeneration, lumbar region; I10 Essential (primary) hypertension; Z98.1 Arthrodesis status
CPT/HCPCS: 97116-GP; 97162-GP; 97165-GO; 97530-GO; 97530-GP; 97535-GO; C1713; G8978-GP-CK; G8979-GP-CJ; G8980-GP-CJ; G8987-GO-CL; G8988-GO-CJ; J0171; J0690; J1170; J1650; J2060; J2270; J2704; J3010